=== PATIENT | male | born 1960 | race Caucasian/White ===

== ENCOUNTER 2025-08-02 14:23 | Outpatient (CLI) | payer MEDICARE, MEDICAID ==
[~2025-08-02] VITALS: Ht 174.6 cm; Wt 93.0 kg
[~2025-08-02 14:23] MED LIST: LISI10TA27 PO; NAPR-56 PO
[2025-08-02 14:39] LABS: ABG BASE EXCESS 0.0 mmol/L (-2.0-3.0); ABG HCO3 22.8 mmol/L (21.0-28.0); ABG OXYGEN SATURATION 95.5 % (94.0-98.0); ABG PCO2 (T) 32.7 mmHg (35.0-48.0); ABG PH (T) 7.461 (7.350-7.450); ABG PO2 (T) 73.6 mmHg (83.0-108.0); ALLEN'S TEST POSITIVE; FCOHb 0.2 % (0.5-1.5); FHHb 4.5 % (0.0-5.0); FIO2 21.0 mmHg/%; FMetHb 0.1 % (0.0-1.5); FO2Hb 95.2 % (94.0-98.0); MODE ROOM AIR; PATIENT TEMPERATURE 37.0; TOTAL HEMOGLOBIN 17.0 G/dl (13.5-17.5)
[2025-08-02] MEDS: albuterol 2.5 MG/3 ML nebule NEB ONE (15:24)
[2025-08-02 15:27] VITALS: PULSE 85; RESP 16; O2SAT 98
[2025-08-02 15:42] VITALS: PULSE 77; RESP 16
--- NOTE | 2025-08-02 16:48 | RADIOLOGY REPORT ---
INDICATION: SARCOIDOSIS TECHNIQUE: CT axial images of the chest are obtained without contrast per HRCT protocol. Coronal and sagittal reformats were obtained. Radiation Dose Information: CTDI volume is 30 mGy. Dose-length product is 1374 mGy*cm COMPARISON: None FINDINGS: Trachea patent. No pneumothorax. Diffuse pulmonary bilateral nodularity/micro nodularity more pronounced within the mid to upper lung adame. This is especially pronounced along the peribronchovascular distribution/bundles.m some of the larger nodules include right upper lobe nodule measuring 9 mm, right lower lobe nodule measuring 9 mm, left upper lobe nodule measuring 9 mm , left lower lobe nodule measuring 12 mm Pretracheal lymph node measuring 13 mm. Right hilar lymph node measuring 14 mm. Subcarinal lymph node measuring 12 mm. Left hilar lymph node measuring 11 mm. No pneumothorax. No pleural effusion. Heart normal in size. Aortic atherosclerotic disease. No supraclavicular/ axillary lymphadenopathy. [id number] thoracic degenerative disc disease IMPRESSION: 1245 Limited evaluation without contrast. Extensive pulmonary nodularity including micro nodules and nodules ranging up to 12 mm in size in an upper to mid lung predominance which can be secondary to patient's known history of sarcoidosis. There is associated mediastinal/ hilar lymphadenopathy as described, which can also be seen with the provided history of sarcoidosis. Correlate clinically to exclude other etiologies including neoplastic process/infection.
== END 2025-08-02 23:59 | disposition home or self-care (01) ==
LOC: RAD 14:23
PROVIDERS: ATTEND Internal Medicine Critical Care Medicine
DX: J44.9 Chronic obstructive pulmonary disease, unspecified (principal); R91.8 Other nonspecific abnormal finding of lung field; R06.02 Shortness of breath; D86.9 Sarcoidosis, unspecified; I70.0 Atherosclerosis of aorta; R59.0 Localized enlarged lymph nodes
CPT/HCPCS: 36600; 71250; 82803; 85018; 94060; 94727; 94729; 94760